=== PATIENT | male | born 1935 | race Caucasian/White ===

== ENCOUNTER 2019-11-08 09:21 | Emergency (ER) | payer OTHER ==
[~2019-11-08] VITALS: Ht 177.8 cm; Wt 88.5 kg
[2019-11-08 09:37] VITALS: Ht 177.8 cm; Wt 88.5 kg
[2019-11-08 11:01] VITALS: BP 103/58
== END 2019-11-08 11:50 | disposition home or self-care (01) ==
LOC: ED 09:21
DX: R31.9 Hematuria, unspecified (principal); T83.098A Other mechanical complication of other urinary catheter, initial encounter; I10 Essential (primary) hypertension; E11.9 Type 2 diabetes mellitus without complications; Z88.0 Allergy status to penicillin; Z88.5 Allergy status to narcotic agent